=== PATIENT | female | born 2000 | race Caucasian/White ===

== ENCOUNTER 2023-11-04 12:48 | Emergency (ER) | payer SELFPAY ==
[2023-11-04 13:00] VITALS: BP 108/69; PULSE 79; RESP 20; TEMP 98.3; BMI 33.9
[2023-11-04] MEDS ORDERED: ACETAMINOPHEN 500 MG TABLET (FP) ONE (13:38)
[2023-11-04] MEDS: ACETAMINOPHEN 325 MG TABLET (FP) PO ONE (13:40)
[2023-11-04 13:54] LABS: HCG,QUALITATIVE URINE Negative
[2023-11-04 13:57] LABS: EPI CELLS 17 /uL (0-25.1); HYALINE CASTS 0 /uL (0-3.1); URINE APPEARANCE CLEAR; URINE BACTERIA 594 /uL (0-1359); URINE BILIRUBIN NEGATIVE (NEGATIVE); URINE COLOR YELLOW; URINE GLUCOSE (UA) NEGATIVE (NEGATIVE); URINE KETONE NEGATIVE (NEGATIVE); URINE LEUK ESTERASE 1+ (NEGATIVE); URINE NITRITE NEGATIVE (NEGATIVE); URINE PROTEIN NEGATIVE (NEGATIVE); URINE UROBILINOGEN 0.2 mg/dL (0.2-1.0); URINE WBC 68 /uL (0-25.8)
[2023-11-04 14:23] LABS: URINE RBC 23 /uL (0-23.9); YEAST NONE SEEN (NEGATIVE)
== END 2023-11-04 14:52 | disposition home or self-care (01) ==
LOC: JER 12:48
DX: R10.9 Unspecified abdominal pain (principal); R19.7 Diarrhea, unspecified
CPT/HCPCS: 81003; 84703; 87086; 87186; 99283-25